=== PATIENT | female | born 1995 | race African-American/Black ===

== ENCOUNTER 2022-01-30 16:59 | Emergency (ER) | payer OTHER ==
[2022-01-30 17:26] VITALS: BP 119/77; PULSE 81; TEMP 98.6; BMI 19.0
== END 2022-01-30 20:33 | disposition home or self-care (01) ==
LOC: JER 16:59 → JERFT 16:59
DX: S90.32XA Contusion of left foot, initial encounter (principal); Y03.0XXA Assault by being hit or run over by motor vehicle, initial encounter
CPT/HCPCS: 73630-TC-LT; 99283-25

== ENCOUNTER 2022-02-22 05:34 | Day surgery (SDC) | payer OTHER ==
[2022-02-17 17:57] VITALS: BMI 19.0
[2022-02-22] MEDS ORDERED: LIDOCAINE HCL/PF 2% SDV 5ML VIAL ONE (07:48)
[2022-02-22] MEDS ORDERED: MIDAZOLAM HCL 2 MG/2 ML SINGLE DOSE VIAL ONE (07:49)
[2022-02-22] MEDS ORDERED: PROPOFOL 20 ML ONE ×2 (07:49)
[2022-02-22] MEDS ORDERED: IBUPROFEN 800 MG/8 ML IJ IVPB PRN (07:55)
[2022-02-22] MEDS ORDERED: oxyCODONE HCL 5 MG TABLET PO PRN (07:55)
[2022-02-22] MEDS ORDERED: ONDANSETRON 4 MG/2 ML VIAL IVPUSH PRN (07:55)
[2022-02-22] MEDS ORDERED: LACTATED RINGERS SOLUTION 1,000 ML IV SCH (08:00)
[2022-02-22] MEDS ORDERED: DEXAMETHASONE SOD PHOSPHATE 4 MG/1 ML VIAL ONE (08:28)
[2022-02-22] MEDS ORDERED: IBUPROFEN 400 MG TABLET (FP) PO PRN (09:03)
[2022-02-22] MEDS ORDERED: ACETAMINOPHEN 325 MG TABLET (FP) PO PRN (09:03)
[2022-02-22 09:37] VITALS: RESP 18
[2022-02-22 11:11] VITALS: BP 98/56; PULSE 64; TEMP 97.7
== END 2022-02-22 11:00 | disposition home or self-care (01) ==
LOC: JASU-SURG 05:34
PROVIDERS: ATTEND Obstetrics & Gynecology
PROC: 0UBC7ZX Excision of Cervix, Via Natural or Artificial Opening, Diagnostic (ICD-10-PCS; principal; 2022-02-22 08:00)
DX: N87.0 Mild cervical dysplasia (principal)
CPT/HCPCS: 81025; 88305-TC; 94760